=== PATIENT | male | born 1985 | race African-American/Black ===

== ENCOUNTER 2019-08-04 23:49 | Emergency (ER) | payer MEDICAID ==
[~2019-08-04] VITALS: Ht 180.3 cm; Wt 71.0 kg
[2019-08-05] MEDS ORDERED: HYDROCODONE/ACETAMINOPHEN 5/325MG TABLET PO ONE (00:45)
[2019-08-05 16:11] VITALS: BP 112/79
== END 2019-08-05 16:13 | disposition home or self-care (01) ==
LOC: ER 23:49
DX: S80.01XA Contusion of right knee, initial encounter (principal); I10 Essential (primary) hypertension; F99 Mental disorder, not otherwise specified; F15.10 Other stimulant abuse, uncomplicated; F12.10 Cannabis abuse, uncomplicated; F17.210 Nicotine dependence, cigarettes, uncomplicated; Z87.81 Personal history of (healed) traumatic fracture; Z59.0 Homelessness; Y04.0XXA Assault by unarmed brawl or fight, initial encounter; Y93.89 Activity, other specified; Y92.488 Other paved roadways as the place of occurrence of the external cause
CPT/HCPCS: 73562; 99283